=== PATIENT | female | born 1995 | race Two or more races ===

== ENCOUNTER 2016-06-24 19:41 | Emergency (ER) | payer MEDICAID ==
[~2016-06-24] VITALS: Ht 157.5 cm; Wt 46.3 kg
[2016-06-24 20:06] VITALS: BP 100/62
== END 2016-06-24 22:19 | disposition home or self-care (01) ==
LOC: ER 19:48
DX: O26.892 Other specified pregnancy related conditions, second trimester (principal); J02.9 Acute pharyngitis, unspecified; R05 Cough; Z3A.18 18 weeks gestation of pregnancy

== ENCOUNTER 2018-05-15 14:33 | Emergency (ER) | payer MEDICAID ==
[~2018-05-15] VITALS: Ht 157.5 cm; Wt 50.8 kg
[2018-05-15 15:28] LABS: Urine Amorphous Crystal MOD /hpf (None Seen); Urine Bacteria FEW /hpf (None Seen); Urine Blood Negative /uL (Negative); Urine Specific Gravity 1.022 (1.001-1.035); Urine WBC 5 /hpf (0 - 5)
[2018-05-15 17:08] VITALS: BP 127/41
== END 2018-05-15 18:02 | disposition home or self-care (01) ==
LOC: ER 14:36
DX: R51 Headache (principal); N39.0 Urinary tract infection, site not specified; R42 Dizziness and giddiness
CPT/HCPCS: 70450; 81001; 93005